=== PATIENT | male | born 1985 | race African-American/Black ===

== ENCOUNTER 2016-05-01 01:14 | Emergency (ER) | payer OTHER ==
[~2016-05-01] VITALS: Ht 177.8 cm; Wt 72.6 kg
[2016-05-01 02:29] LABS: Basophils # (auto) 0 uL; Basophils % (auto) 0.5 % (0.0-2.0); Eosinophils # (auto) 0.2 uL; Eosinophils % (auto) 2.8 % (0.0-7.0); Hematocrit 35.8 % (41.0-53.0); Hemoglobin 11.7 g/dL (13.5-17.5); Lymphocytes # (auto) 1.2 uL; Lymphocytes % (auto) 17.4 % (10.0-50.0); Mean Corpuscular Hemoglobin 32.3 pg (28.0-32.0); Mean Corpuscular Hgb Conc. 32.7 g/dL (32.0-36.0); Mean Corpuscular Volume 98.7 fL (80.0-100.0); Mean Platelet Volume 8.5 fL (7.4-10.4); Monocytes # (auto) 0.7 uL; Monocytes % (auto) 10.2 % (0.0-12.0); Neutrophils # (auto) 4.6 uL; Neutrophils % (auto) 69.1 % (37.0-80.0); Platelet Count (auto) 334 10^3/uL (140-450); Red Cell Distribution Width 12.6 % (11.6-16.0); White Blood Cell 6.7 10^3/uL (4.4-10.8)
[2016-05-01 03:10] LABS: Albumin 3.5 g/dL (3.4-5.0); Alkaline Phosphatase 79 U/L (45-117); Anion Gap 10 (5-15); Aspartate Aminotransferase 12 U/L (15-37); BUN/Creatinine Ratio 7.1; Bilirubin, Total 0.3 mg/dL (0.2-1.0); Blood Urea Nitrogen 8 mg/dL (7-18); Calcium 8.7 mg/dL (8.5-10.1); Carbon Dioxide 26 mmol/L (21-32); Chloride 105 mmol/L (98-107); GFR African American 98 mL/min; GFR Non-African American 81 mL/min; Glucose 130 mg/dL (74-106); Potassium 3.8 mmol/L (3.5-5.1); Sodium 141 mmol/L (136-145); Total Protein 7.3 g/dL (6.4-8.2)
[2016-05-01] MEDS ORDERED: ONDANSETRON HCL 4 MG/2 ML VIAL IV ONE (03:45)
[2016-05-01] MEDS ORDERED: HYDROmorphone HCL 2 MG/ML VL IV ONE (03:45)
[2016-05-01] MEDS ORDERED: diphenhdrAMINE HCL 50 MG/1 ML VL ONE (05:01)
[2016-05-01] MEDS ORDERED: diphenhdrAMINE HCL 50 MG/1 ML VL IV ONE (05:15)
[2016-05-01 07:35] VITALS: BP 132/78
== END 2016-05-01 08:03 | disposition short-term general hospital (02) ==
LOC: ER 01:14
DX: S12.0 Fracture of first cervical vertebra (principal); D64.9 Anemia, unspecified; F12.10 Cannabis abuse, uncomplicated; F17.210 Nicotine dependence, cigarettes, uncomplicated; X58.XXXD Exposure to other specified factors, subsequent encounter
CPT/HCPCS: 36415; 70450; 72125; 80053; 80320; 85025; 85049; 96374; 96375; 99285; G0434; J1170; J1200; J2405

== ENCOUNTER 2016-05-06 10:10 | Emergency (ER) | payer OTHER ==
[~2016-05-06] VITALS: Ht 177.8 cm; Wt 68.0 kg
[2016-05-06 11:00] LABS: Basophils # (auto) 0 uL; Basophils % (auto) 0.6 % (0.0-2.0); Eosinophils # (auto) 0.2 uL; Eosinophils % (auto) 3.8 % (0.0-7.0); Hematocrit 40.1 % (41.0-53.0); Lymphocytes # (auto) 1.1 uL; Lymphocytes % (auto) 22.4 % (10.0-50.0); Mean Corpuscular Hemoglobin 32.3 pg (28.0-32.0); Mean Corpuscular Hgb Conc. 32.4 g/dL (32.0-36.0); Mean Corpuscular Volume 99.9 fL (80.0-100.0); Mean Platelet Volume 8.4 fL (7.4-10.4); Monocytes # (auto) 0.5 uL; Monocytes % (auto) 8.9 % (0.0-12.0); Neutrophils # (auto) 3.3 uL; Neutrophils % (auto) 64.3 % (37.0-80.0); Platelet Count (auto) 346 10^3/uL (140-450); Red Cell Distribution Width 12.7 % (11.6-16.0); White Blood Cell 5.1 10^3/uL (4.4-10.8)
[2016-05-06 11:14] LABS: BUN/Creatinine Ratio 8.5; Calcium 9.3 mg/dL (8.5-10.1); Potassium 4.6 mmol/L (3.5-5.1)
[2016-05-06] MEDS ORDERED: LORazepam 2MG/ML-1ML VIAL IV ONE (11:15)
[2016-05-06] MEDS ORDERED: SODIUM CHLORIDE 0.9% 1,000 ML IV ONE (11:15)
[2016-05-06] MEDS ORDERED: ACET30TA15 PO (11:17)
[2016-05-06] MEDS ORDERED: IBU100LQ PO (11:18)
[2016-05-06] MEDS ORDERED: METH750T3 PO (11:18)
[2016-05-06 11:19] LABS: INR 1.04 (0.9-1.15); Prothrombin Time 10.7 sec (9.37-12.3)
[2016-05-06 12:57] LABS: Albumin 3.3 g/dL (3.4-5.0); Alkaline Phosphatase 86 U/L (45-117); Anion Gap 9 (5-15); Aspartate Aminotransferase 130 U/L (15-37); BUN/Creatinine Ratio 7.1; Bilirubin, Total 0.3 mg/dL (0.2-1.0); Blood Urea Nitrogen 7 mg/dL (7-18); Calcium 8.6 mg/dL (8.5-10.1); Carbon Dioxide 21 mmol/L (21-32); Chloride 107 mmol/L (98-107); GFR African American 114 mL/min; GFR Non-African American 94 mL/min; Glucose 84 mg/dL (74-106); Potassium 4.5 mmol/L (3.5-5.1); Sodium 137 mmol/L (136-145); Total Protein 7.5 g/dL (6.4-8.2)
[2016-05-06 13:40] VITALS: BP 121/65
[2016-05-06 13:50] LABS: Urine Bilirubin Negative (Negative); Urine Blood TRACE /uL (Negative); Urine Color Colorless (Yellow); Urine Glucose Normal (Normal); Urine Ketone Negative (Negative); Urine Nitrite Negative (Negative); Urine RBC <1 /hpf (0 - 3); Urine Squamous Epithelial Cell FEW /hpf (<5); Urine Urobilinogen Normal (Negative)
== END 2016-05-06 14:00 | disposition short-term general hospital (02) ==
LOC: EDBD 10:10 → ER 10:15
DX: S12.001D Unspecified nondisplaced fracture of first cervical vertebra, subsequent encounter for fracture with routine healing (principal); R56.9 Unspecified convulsions; F17.210 Nicotine dependence, cigarettes, uncomplicated; F12.10 Cannabis abuse, uncomplicated; X58.XXXD Exposure to other specified factors, subsequent encounter
CPT/HCPCS: 36415; 70450; 72125; 80048; 80053; 80320; 81001; 85025; 85049; 85610; 93005; 96361; 96374; 99291; G0434; J2060; J7030

== ENCOUNTER 2016-06-21 14:01 | Emergency (ER) | payer MEDICAID, OTHER ==
[~2016-06-21] VITALS: Ht 175.3 cm; Wt 68.0 kg
[~2016-06-21 14:01] MED LIST: ACET30TA15 PO; IBU100LQ PO; METH750T3 PO
[2016-06-21 17:46] LABS: Basophils # (auto) 0 uL; Basophils % (auto) 0.9 % (0.0-2.0); DEFINITIVE VIEW TRANSMISSION; Eosinophils # (auto) 0.2 uL; Eosinophils % (auto) 5.7 % (0.0-7.0); Hemoglobin 13.3 g/dL (13.5-17.5); Lymphocytes # (auto) 1.3 uL; Lymphocytes % (auto) 41.4 % (10.0-50.0); Mean Corpuscular Hemoglobin 34.6 pg (28.0-32.0); Mean Corpuscular Hgb Conc. 33.2 g/dL (32.0-36.0); Mean Corpuscular Volume 104.4 fL (80.0-100.0); Mean Platelet Volume 7.7 fL (7.4-10.4); Monocytes # (auto) 0.3 uL; Monocytes % (auto) 9.9 % (0.0-12.0); Neutrophils # (auto) 1.4 uL; Neutrophils % (auto) 42.1 % (37.0-80.0); Platelet Count (auto) 337 10^3/uL (140-450); Red Cell Distribution Width 14.3 % (11.6-16.0); White Blood Cell 3.2 10^3/uL (4.4-10.8)
[2016-06-21 17:57] LABS: INR 1.11 (0.9-1.15); Partial Thromboplastin Time 27.7 sec (22.64-33.71); Prothrombin Time 11.4 sec (9.37-12.3)
[2016-06-21 17:58] LABS: Albumin 3.7 g/dL (3.4-5.0); Anion Gap 9 (5-15); Aspartate Aminotransferase 26 U/L (15-37); BUN/Creatinine Ratio 7.3; Blood Urea Nitrogen 8 mg/dL (7-18); Calcium 8.9 mg/dL (8.5-10.1); Carbon Dioxide 27 mmol/L (21-32); Chloride 104 mmol/L (98-107); GFR African American 100 mL/min; GFR Non-African American 83 mL/min; Glucose 118 mg/dL (74-106); Potassium 3.4 mmol/L (3.5-5.1); Sodium 140 mmol/L (136-145)
[2016-06-21 18:03] LABS: Alkaline Phosphatase 74 U/L (45-117); Bilirubin, Total 1.3 mg/dL (0.2-1.0); Total Protein 7.6 g/dL (6.4-8.2)
[2016-06-21 18:31] VITALS: BP 87/49
== END 2016-06-21 18:45 | disposition home or self-care (01) ==
LOC: ER 14:01 → EDBD 14:01 → ER 18:45
DX: R42 Dizziness and giddiness (principal); Z79.899 Other long term (current) drug therapy; R10.9 Unspecified abdominal pain; F17.210 Nicotine dependence, cigarettes, uncomplicated; F12.10 Cannabis abuse, uncomplicated
CPT/HCPCS: 36415; 70450; 80053; 84484; 85025; 85610; 85730; 87040

== ENCOUNTER 2022-02-18 12:59 | Emergency (ER) | payer MEDICAID ==
[~2022-02-18] VITALS: Ht 177.8 cm; Wt 86.0 kg
[~2022-02-18 12:59] MED LIST changes: -IBU100LQ PO; +IBUP100S11 PO; +METH750T22 PO; -METH750T3 PO
[2022-02-18 13:40] LABS: Basophils # (auto) 0 10 ^3/uL (0-0.2); Eosinophils # (auto) 0.1 10 ^3/uL (0-0.8); Lymphocytes # (auto) 0.9 10 ^3/uL (0.4-5.4); Monocytes # (auto) 0.4 10 ^3/uL (0-1.3); Neutrophils # (auto) 1.4 10 ^3/uL (1.6-8.6); White Blood Cell 2.8 10^3/uL (4.4-10.8)
[2022-02-18 13:42] LABS: Basophils % (auto) 0.6 % (0.0-2.0); Lymphocytes % (auto) 32.7 % (10.0-50.0); Mean Corpuscular Hemoglobin 34.7 pg (28.0-32.0); Mean Corpuscular Hgb Conc. 33.4 g/dL (32.0-36.0); Mean Corpuscular Volume 104.1 fL (80.0-100.0); Monocytes % (auto) 13.8 % (0.0-12.0); Neutrophils % (auto) 49.9 % (37.0-80.0); Nucleated Red Blood Cells % 0.1 %; Red Blood Cells 4.03 10^6/uL (4.5-5.90); Red Cell Distribution Width 12.6 % (11.8-14.3)
[2022-02-18 14:00] LABS: Calcium 9.1 mg/dL (8.5-10.1); Potassium 4.2 mmol/L (3.5-5.1)
[2022-02-18 14:03] LABS: BUN/Creatinine Ratio 5.2; Bilirubin, Total 0.5 mg/dL (0.2-1.0); Total Protein 7.3 g/dL (6.4-8.2)
[2022-02-18 14:47] VITALS: BP 134/74
[2022-02-18] MEDS ORDERED: LEVE500T32 PO (14:59)
[2022-02-18] MEDS ORDERED: KETOROLAC TROMETH 30 MG/ML 1ML VIAL ONE (16:21)
[2022-02-18] MEDS ORDERED: KETOROLAC TROMETH 30 MG/ML 1ML VIAL IV ONE (16:30)
== END 2022-02-18 16:50 | disposition home or self-care (01) ==
LOC: EDUNIT# 12:59 → EDBD 12:59 → ER 12:59
DX: R56.9 Unspecified convulsions (principal); F17.210 Nicotine dependence, cigarettes, uncomplicated; Z86.69 Personal history of other diseases of the nervous system and sense organs; Z79.1 Long term (current) use of non-steroidal anti-inflammatories (NSAID); Z79.899 Other long term (current) drug therapy
CPT/HCPCS: 36415; 70450; 80053; 85025; 93005; 96365; 96375; 99285; J1885; J1953; J7060

== ENCOUNTER 2022-08-04 12:54 | Emergency (ER) | payer SELFPAY ==
[~2022-08-04] VITALS: Ht 175.3 cm; Wt 71.9 kg
[~2022-08-04 12:54] MED LIST changes: +LEVE500T32 PO
[2022-08-04] MEDS ORDERED: LEVE100012 PO (17:09)
[2022-08-04 17:21] VITALS: BP 95/50
== END 2022-08-04 17:25 | disposition home or self-care (01) ==
LOC: ER 12:54
DX: F17.210 Nicotine dependence, cigarettes, uncomplicated (principal); F12.90 Cannabis use, unspecified, uncomplicated; Z76.0 Encounter for issue of repeat prescription

== ENCOUNTER 2024-01-20 09:32 | Inpatient (IN) | payer MEDICAID ==
[~2024-01-20] VITALS: Ht 175.3 cm; Wt 65.6 kg
[~2024-01-20 09:32] MED LIST changes: +LEVE100012 PO; -LEVE500T32 PO; +LEVE500T40 PO; +METH-1182 PO; -METH750T22 PO
[2024-01-20] MEDS: SODIUM CHLORIDE 0.9% 1,000 ML IV ONE ×2 (09:45→10:09)
[2024-01-20] MEDS: levETIRAcetam 1000 mg/100ml 100 ML IV ONE (10:04)
[2024-01-20 10:26] LABS: Basophils # (auto) 0 10 ^3/uL (0-0.2); Eosinophils # (auto) 0.1 10 ^3/uL (0-0.8); Eosinophils % (auto) 3.2 % (0.0-7.0); Hematocrit 39.5 % (41.0-53.0); Hemoglobin 13.7 g/dL (13.5-17.5); Lymphocytes % (auto) 23.2 % (10.0-50.0); Mean Corpuscular Hemoglobin 35.8 pg (28.0-32.0); Mean Corpuscular Hgb Conc. 34.7 g/dL (32.0-36.0); Monocytes # (auto) 0.4 10 ^3/uL (0-1.3); Monocytes % (auto) 9.6 % (0.0-12.0); Neutrophils # (auto) 2.8 10 ^3/uL (1.6-8.6); Platelet Count (auto) 222 10^3/uL (140-450); Red Blood Cells 3.84 10^6/uL (4.5-5.90); Red Cell Distribution Width 12.6 % (11.8-14.3); White Blood Cell 4.4 10^3/uL (4.4-10.8)
[2024-01-20 10:46] LABS: Chloride 110 mmol/L (98-107); Potassium 4.3 mmol/L (3.5-5.1); Sodium 139 mmol/L (136-145)
[2024-01-20 10:47] LABS: Anion Gap 4 (5-15); Calcium 9.6 mg/dL (8.7-10.4); Carbon Dioxide 25 mmol/L (20-31)
[2024-01-20 10:52] LABS: Glucose 93 mg/dL (74-106)
[2024-01-20 11:13] LABS: BUN/Creatinine Ratio 5.2 (10.0-20.0); Blood Urea Nitrogen < 5 mg/dL (9-23)
[2024-01-20] MEDS: HYDROcodone-ACET 10/325MG TAB PO ONE (11:22)
[2024-01-20 12:30] VITALS: PULSE 104; PULSE 70; RESP 14; RESP 19; O2SAT 90; O2SAT 96
[2024-01-20 13:32] LABS: Urine Bacteria None Seen /hpf (None Seen)
[2024-01-20 13:42] LABS: Urine Blood Negative /uL (Negative); Urine Clarity Clear (Clear); Urine Protein, UAD Negative (Negative); Urine Specific Gravity 1.012 (1.001-1.035); Urine Urobilinogen Normal (Negative); Urine WBC <1 /hpf (0 - 3)
[2024-01-20 13:45] LABS: Urine Color Light-Yellow (Yellow)
[2024-01-20] MEDS ORDERED: LORazepam 2MG/ML-1ML VIAL IV PRN (13:45)
[2024-01-20 15:25] VITALS: BP 157/81; PULSE 72; RESP 18; TEMP 98; O2SAT 98
[2024-01-20] MEDS: MORPHINE SULFATE INJ 2 MG/ml SYRG IV PRN (16:06)
[2024-01-20] MEDS ORDERED: KEP500T PO (16:53)
[2024-01-20 17:38] VITALS: BP 127/92; PULSE 57; RESP 18; TEMP 98.2; O2SAT 98
[2024-01-20 19:35] VITALS: BP 112/60; PULSE 68; RESP 20; TEMP 98.3; O2SAT 98
[2024-01-20 20:00] VITALS: PULSE 70; RESP 20; O2SAT 98
[2024-01-20] MEDS: OXYCODONE W/ ACETAMINOPHEN 5/325MG TABLET PO ONE (23:02)
[2024-01-21] VITALS (7 sets, daily range): BP systolic 106–128; BP diastolic 63–89; PULSE 70–85; RESP 16–20; TEMP 36.8; O2SAT 97–99
[2024-01-21] MEDS: levETIRAcetam 500 MG TAB PO SCH (10:09)
[2024-01-21 10:24] LABS: Basophils # (auto) 0 10 ^3/uL (0-0.2); Eosinophils # (auto) 0.1 10 ^3/uL (0-0.8); Lymphocytes # (auto) 1.1 10 ^3/uL (0.4-5.4); Monocytes # (auto) 0.5 10 ^3/uL (0-1.3); Monocytes % (auto) 9.3 % (0.0-12.0); Neutrophils # (auto) 3.6 10 ^3/uL (1.6-8.6); Red Cell Distribution Width 12.6 % (11.8-14.3); White Blood Cell 5.3 10^3/uL (4.4-10.8)
[2024-01-21 10:30] LABS: Basophils % (auto) 0.6 % (0.0-2.0); Eosinophils % (auto) 1.2 % (0.0-7.0); Hematocrit 37.6 % (41.0-53.0); Hemoglobin 13.2 g/dL (13.5-17.5); Lymphocytes % (auto) 21.5 % (10.0-50.0); Mean Corpuscular Hemoglobin 35.9 pg (28.0-32.0); Mean Corpuscular Volume 102.7 fL (80.0-100.0); Neutrophils % (auto) 67.4 % (37.0-80.0); Platelet Count (auto) 230 10^3/uL (140-450); Red Blood Cells 3.66 10^6/uL (4.5-5.90)
[2024-01-21 10:40] LABS: Anion Gap 8 (5-15); Carbon Dioxide 24 mmol/L (20-31); Chloride 106 mmol/L (98-107); Potassium 3.4 mmol/L (3.5-5.1); Sodium 138 mmol/L (136-145)
[2024-01-21 10:41] LABS: Calcium 9.8 mg/dL (8.7-10.4)
[2024-01-21 10:46] LABS: BUN/Creatinine Ratio 5.1 (10.0-20.0); Blood Urea Nitrogen 6 mg/dL (9-23); Glucose 151 mg/dL (74-106)
[2024-01-21 11:39] LABS: Amphetamine Screen, Urine Neg (NEGATIVE)
[2024-01-21 11:40] LABS: Barbiturate Scree,Urine Neg (NEGATIVE); Benzodiazephine Screen, Urine Neg (NEGATIVE); Cannabinoid Screen, Urine Pos (NEGATIVE); Cocaine Screen, Urine Neg (NEGATIVE); Opiate Scree,Urine Neg (NEGATIVE); Phencyclidine Screen, Urine Neg (NEGATIVE)
[2024-01-21] MEDS: HYDROcodone-ACET 5/325MG TAB PO PRN (12:41)
[2024-01-21] MEDS ORDERED: KEP500T PO (16:40)
[2024-01-21] MEDS: POTASSIUM CHL 20 Meq TABLET PO ONE (17:18)
[2024-01-28] MEDS ORDERED: IBUP-1454 PO (21:10)
== END 2024-01-21 18:07 | disposition home or self-care (01) | DRG 53 ==
LOC: ER 09:32 → EDBD 09:32 → OVERFLOW 13:18 → WEST WING 15:19 → EAST 20:00
PROVIDERS: ADMIT Internal Medicine; ATTEND Internal Medicine
DX: G40.409 Other generalized epilepsy and epileptic syndromes, not intractable, without status epilepticus (principal); F12.10 Cannabis abuse, uncomplicated; M54.2 Cervicalgia; T42.6X6A Underdosing of other antiepileptic and sedative-hypnotic drugs, initial encounter; W06.XXXA Fall from bed, initial encounter; Y92.003 Bedroom of unspecified non-institutional (private) residence as the place of occurrence of the external cause; Z91.148 Patient's other noncompliance with medication regimen for other reason
CPT/HCPCS: 36415; 70110; 70450; 72040; 73030; 73502; 80048; 80307; 81001; 82306; 82607; 83036; 84443; 85025; 99291; G0378

== ENCOUNTER 2024-11-14 21:46 | Emergency (ER) | payer MEDICAID ==
[~2024-11-14] VITALS: Ht 175.3 cm; Wt 65.8 kg
[~2024-11-14 21:46] MED LIST changes: +IBUP-1454 PO; +KEP500T PO
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
[2024-11-14 22:15] VITALS: PULSE 72; RESP 18; TEMP 98; O2SAT 94
[2024-11-14] MEDS: HYDROmorphone HCL 2 MG/ML VL/or syr IV ONE (22:30)
[2024-11-14] MEDS: ONDANSETRON HCL 4 MG/2 ML VIAL IV ONE (22:30)
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
[2024-11-15 00:55] VITALS: O2SAT 97
[2024-11-15 01:03] VITALS: BP 106/68; PULSE 78; RESP 16
== END 2024-11-15 01:15 | disposition home or self-care (01) ==
LOC: ER 21:46 → EDBD 21:46 → ER 11-15 01:15
DX: S43.101A Unspecified dislocation of right acromioclavicular joint, initial encounter (principal); F12.90 Cannabis use, unspecified, uncomplicated; Z87.81 Personal history of (healed) traumatic fracture; Z79.899 Other long term (current) drug therapy; V29.99XA Rider (driver) (passenger) of other motorcycle injured in unspecified traffic accident, initial encounter; Y93.89 Activity, other specified; Y92.488 Other paved roadways as the place of occurrence of the external cause; Y99.8 Other external cause status
CPT/HCPCS: 70450; 72125; 73000; 73030; 73130; 73562; 96374; 96375; 99285; J1171; J2405